=== PATIENT | female | born 1990 | race Caucasian/White ===

== ENCOUNTER 2016-12-24 10:49 | Outpatient (CLI) | payer MEDICAID ==
[~2016-12-24] VITALS: Ht 160 cm; Wt 55.5 kg
[2016-12-24 11:12] VITALS: Ht 160 cm; Wt 55.5 kg
[2016-12-24 11:13] VITALS: BP 107/56; PULSE 65
[2016-12-24] MEDS ORDERED: PRENAT PO (11:15)
[2016-12-24] MEDS ORDERED: LACTATED RINGER'S 1,000 ML IV SCH (12:00)
--- NOTE | 2016-12-24 12:30 | RADRPT ---
PROCEDURE: US OB. CLINICAL INDICATION: labor and 33 weeks gestational age. TECHNIQUE: Multiple sonographic images of the uterus were obtained. Transvaginal sonograp hy of the cervix was also performed. The images were reviewed on a PACS workstation. COMPARISON: No prior studies are available for comparison. FINDINGS: There is a single live intrauterine gestation. heart rate is 136 beats per minute. Measurements were made in order to determine age. The results are as follows: BPD = 7.82 cm. HC = 27.61 cm. AC = 27.94 cm. FL = 5.43 cm. Estimated weight is 1635 +/- 245 grams. LMP growth percentile is less than 3 %. Amniotic fluid index is 6.7 cm. Cervical length is 3.8 c m. Menstrual age by ultrasound dates is 30 weeks 4 days. The estimated date of delivery is 02/28/2017. Position is cephalic and placenta is fundal grade II. There is no evidence for an abruption or place nta previa. IMPRESSION: 1. Single live intrauterine gestation of 30 weeks 4 days menstrual age by ultrasound dates. 2. The estimated date of delivery is 02/28/2017. 3. Cervical length is 3.8 cm. RPTAT: QQ .Austin Van MD, Date Time Electronically viewed and signed by .Austin Van MD, on 12/24/2016 12:30 .R/
[2016-12-24 13:43] LABS: ADD UMIC YES; URINE BILIRUBIN (Dip) 1+ (NEGATIVE); URINE BLOOD (Dip) NEGATIVE (NEGATIVE); URINE COLOR YELLOW (YELLOW); URINE GLUCOSE (Dip) NEGATIVE (NEGATIVE); URINE KETONES (Dip) 3+ (NEGATIVE); URINE LEUKOCYTE ESTERASE (Dip) 1+ (NEGATIVE); URINE NITRITE (Dip) NEGATIVE (NEGATIVE); URINE TOTAL PROTEIN (Dip) TRACE (NEGATIVE); URINE UROBILINOGEN (Dip) 1.0 E.U./dL (0.1-1.0)
[2016-12-24 14:20] LABS: URINE RBCS 0-2 /HPF (0)
[2016-12-24 14:21] LABS: BACTERIA,URINE MODERATE; MUCUS,URINE MODERATE
[2016-12-24 14:22] LABS: ICTOTEST NEGATIVE (NEGATIVE)
[2016-12-24] MEDS ORDERED: CEFAZOLIN 2 GM/50 ML (PMX) 50 ML IVPB ONE (14:30)
--- NOTE | 2016-12-24 16:22 | PN ---
DATE: 12/24/2016 The patient is a 26-year-old G5,P4 presently at 33-1/2 weeks accompanied with uterine contractions. ____ Positive movement. PAST MEDICAL HISTORY: None. EXAM: Normal. Vital signs are normal. Ultrasound shows cervical veins within normal limits, probable UTI. ASSESSMENT: 1. Intrauterine at 33-1/2 weeks. 2. False labor. 3. Urinary tract infection. 4. ____ given. Discharged home. Follow up with OB within 2 to 3 days. Dictated By: CHERYL ROBERTS MD /NTS Conf#: [id number] DID#: [id number]
== END 2016-12-24 15:05 | disposition home or self-care (01) ==
LOC: OBT 10:49 → L-D 10:49 → OBT 15:05
DX: O62.9 Abnormality of forces of labor, unspecified (principal); O47.03 False labor before 37 completed weeks of gestation, third trimester; O23.43 Unspecified infection of urinary tract in pregnancy, third trimester; Z3A.33 33 weeks gestation of pregnancy
CPT/HCPCS: 36415; 76815; 76817; 81001; 81003; 96360; 96361; J0690; J7120; Z7500; G0463